=== PATIENT | male | born 1945 | race Caucasian/White ===

== ENCOUNTER → 2016-04-11 | Outpatient (CLI) | payer MEDICARE, OTHER ==
[~2016-04-11] MED LIST: ASPI-119 PO; ATOR40TA16 PO; AZIT250T3 PO; CINN500C PO; DICL75TA PO; FENO145T2 PO; FLAX10006 PO; IRBE300T11 PO; KRIL1000 PO; LANTINJ SQ; LATA0.002 EACH EYE; METF500T PO; NEOM0.1S4 RIGHT EYE; NEOMOIN RIGHT EYE; RAPA8CAP PO; TAMS0.4C4 PO; TURM450C PO; TYLETAB34 PO; VICT18IN SQ; [UNRECOGNIZED DRUG - CODE] PO
--- NOTE | 2016-04-11 11:31 | RADRPT ---
EXAM DATE/TIME: 04/11/2016 11:10 [place] COMPARISON: No previous studies available for comparison. INDICATIONS : Evaluate for pneumonia, pneumothorax, or communicable disease. Pre op for knee arthroscopy. MEDICAL HISTORY : None. SURGICAL HISTORY : None. ENCOUNTER: Initial ACUITY: 1 day PAIN SCORE: 0/10 LOCATION: Bilateral chest FINDINGS: PA and lateral views of the chest demonstrate the lungs to be symmetrically aerated without evidence of mass, infiltrate or effusion. The cardiomediastinal contours are unremarkable. Osseous structure s are intact. CONCLUSION: Normal examination. Omar Lockhart MD on April 11, 2016 at 11:29 Board Certified Radiologist. This report was verified electronically.
[2016-04-11 11:37] LABS: BLOOD, URINE NEG (NEG); GLUCOSE,URINE NEG (NEG); KETONE, URINE NEG (NEG); NITRITE,URINE NEG (NEG); PH, URINE 6.5 (5.0-8.5); URINE COLOR LIGHT-YELLOW (YELLW/STRAW)
[2016-04-11 11:38] LABS: COMMENT (UR) CULT NOT INDICATED; CULTURE IF INDICATED CULT NOT INDICATED
[2016-04-11 11:49] LABS: PROTHROMBIN TIME - PATIENT 10.7 SEC (9.8-11.6)
[2016-04-11 11:56] LABS: BICARBONATE 27.3 MEQ/L (21.0-32.0); POTASSIUM 4.3 MEQ/L (3.5-5.1)
== END ==
LOC: CPRE 10:04
PROVIDERS: ATTEND Orthopaedic Surgery
DX: Z01.810 Encounter for preprocedural cardiovascular examination (principal); Z01.811 Encounter for preprocedural respiratory examination; Z01.812 Encounter for preprocedural laboratory examination; S83.232D Complex tear of medial meniscus, current injury, left knee, subsequent encounter; X58.XXXD Exposure to other specified factors, subsequent encounter
CPT/HCPCS: 36415; 71020; 80048; 81001; 85610

== ENCOUNTER → 2016-04-21 | Day surgery (SDC) | payer MEDICARE, OTHER ==
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
[~2016-04-21] VITALS: Ht 170.2 cm; Wt 91.1 kg
[~2016-04-21] MED LIST changes: +ACETAMINOPHEN/HYDROcodone 325 MG/5 MG TAB PO PRN; +DEXAMETHASONE SOD PHOS 4 MG/ML VIAL ONE; +DO NOT ADM ANY ANTICOAGULANT DRUGS XX PRN; +FAMOTIDINE 20 MG/2 ML VIAL ONE; +INSULIN HUMAN REGULAR 1,000 UNITS/10 ML VIAL SQ PRN; +KETOROLAC TROMETHAMINE 60 MG/2 ML (IM) VIAL IM ONE; +LACTATED RINGER'S 1000 ML INJ 1,000 ML IV ONE; +LACTATED RINGER'S 1000 ML IV SCH; +LIDOCAINE HCL 2% PF SOLN 10 ML VIAL ONE; +METOCLOPRAMIDE HCL 10 MG/2 ML VIAL ONE; +METOPROLOL TARTRATE 25 MG TAB PO PRN; +MIDAZOLAM HCL 2 MG/2 ML VIAL ONE; +MORPHINE SULFATE 8 MG/ML INJ IM PRN; +ONDANSETRON HCL 4 MG/2 ML VIAL IV PUSH ONE; +PHENYLEPH/NS 1000 MCG/10 ML SYR IV ONE; +POVIDONE IODINE 7.5% SCRUB 118 ML BOTTLE TOP SCH; +PROPOFOL 200 MG/20 ML AMP IV ONE; +SODIUM CHLORID 0.9% 500 ML IV SCH; +TRIAMCINOLONE ACETONIDE 40 MG/ML VIAL I-SYNOVIAL ONE; +ceFAZolin 2 GM PREMIX 50 ML IV SCH; +ePHEDrine/NS 25 MG/5 ML SYR IV ONE; +fentaNYL CITRATE 250 MCG/5 ML AMP ONE
[2016-04-21 06:13] VITALS: BP 122/73; PULSE 78; RESP 18; TEMP 97.6; O2SAT 96
[2016-04-21 09:50] VITALS: BP 123/73; PULSE 69; RESP 20; TEMP 97.6; O2SAT 95
--- NOTE | 2016-04-25 17:02 | MP ---
cc: SLY SAUL DATE OF SURGERY [birth year] PREOPERATIVE DIAGNOSIS 1. Complex tear medial meniscus left knee 2. Lateral meniscus tear left knee 3. Chondromalacia left knee 4. Effusion left knee, 5. Arredondo's cyst left knee 6. Pain left knee POSTOPERATIVE DIAGNOSIS 1. Complex tear medial meniscus left knee 2. Lateral meniscus tear left knee 3. Chondromalacia left knee 4. Effusion left knee, 5. Arredondo's cyst left knee 6. Pain left knee 7. Chondromalacia patellae left knee, 8. Synovial plica left knee PROCEDURE 1. Partial medial meniscectomy left knee 2. Chondroplasty of medial compartment 3. Chondroplasty of patellofemoral joint 4. Resection of synovial plica left knee SURGEON Jess Saul MD ANESTHESIA General by LMA PROCEDURE IN DETAIL Following the induction of satisfactory general anesthesia by LMA insertion as completed per the Department of Anesthesia, examination of the left knee revealed a satisfactory range of motion with no obvious ligamentous instability. The extremity proper was positioned into the assistant professor of communication knee casas, prepped with Betadine solution and draped into a sterile field in the routine manner. Prior to initiation of the actual procedure, the standard time-out protocol was completed. All parameters were appropriately addressed and confirmed by operating room personnel. Arthroscopic instrumentation was introduced through stab wound utilizing cannula with sharp and blunt trocar. The inflow irrigation by way of a medial suprapatellar portal, the arthroscope through a lateral parapatellar portal and a probe through a medial parapatellar portal. Examination of the suprapatellar pouch revealed a mild degree of proliferative synovium, a prominent synovial plica was identified within the medial aspect of the suprapatellar region. Moderate degenerative irregularity of the patellofemoral joint consistent with localized chondromalacia. Within the medial compartment, a degenerative tear involving the posterior horn of the medial meniscus was readily identified. There was adjacent articular irregularity especially involving the femoral condyle that was consistent with localized chondromalacia. The anterior cruciate ligament was identified and noted to be intact. Within the lateral compartment, there was no significant irregularity appreciated in spite of an MRI scan having reported a small radial tear of the lateral meniscus. The meniscus structure itself appeared to be reasonably intact throughout as was the adjacent articular surfaces of the femoral condyle and tibial plateau. Attention was redirected to the medial compartment. Utilizing both a biting suction forceps as well as a 4.0 aggressive resector, a partial medial meniscectomy was accomplished as well as localized debridement and chondroplasty of the femoral condyle and tibial plateau. The resector was thereafter oriented into the suprapatellar region. The previously identified synovial plica was resected followed by a chondroplasty of the patellofemoral joint with emphasis being directed more towards the femoral side. Upon completion of same, the joint space was thoroughly lavaged and suctioned dry. An intra-articular Kenalog lidocaine injection was completed. Portal sites were reapproximated with Steri-Strips over which Xeroform gauze and a bulky dry sterile dressing placed. Anesthesia was discontinued and the patient thus transferred to a hospital stretcher and returned to the recovery room in satisfactory condition having tolerated the operative procedure well. Estimated blood loss was less than 10 mL. MD BARBARA Becker/ /8:26 AM /3:41 PM
== END | disposition home or self-care (01) ==
LOC: HSDC 05:19 → EDUNIT# 07:30
PROVIDERS: ATTEND Orthopaedic Surgery
DX: S83.232A Complex tear of medial meniscus, current injury, left knee, initial encounter (principal); S83.282A Other tear of lateral meniscus, current injury, left knee, initial encounter; M94.262 Chondromalacia, left knee; M71.22 Synovial cyst of popliteal space [Baker], left knee; M67.52 Plica syndrome, left knee; E11.9 Type 2 diabetes mellitus without complications; Z79.4 Long term (current) use of insulin; Z85.51 Personal history of malignant neoplasm of bladder
CPT/HCPCS: 01400; 29881; 82948; J0690; J1100; J1885; J2250; J2370; J2405; J2765; J3010; J3301; J7120

== ENCOUNTER → 2016-11-22 | Day surgery (SDC) | payer MEDICARE, OTHER ==
[~2016-11-22] MED LIST changes: -ACETAMINOPHEN/HYDROcodone 325 MG/5 MG TAB PO PRN; -AZIT250T3 PO; +BUPIVACAINE/EPINEPHRINE 0.5% 50 ML VIAL ONE; -DEXAMETHASONE SOD PHOS 4 MG/ML VIAL ONE; -DO NOT ADM ANY ANTICOAGULANT DRUGS XX PRN; -FAMOTIDINE 20 MG/2 ML VIAL ONE; +HEPARIN SODIUM - IV 10,000 UNITS/10 ML VIAL ONE; -INSULIN HUMAN REGULAR 1,000 UNITS/10 ML VIAL SQ PRN; -KETOROLAC TROMETHAMINE 60 MG/2 ML (IM) VIAL IM ONE; -LACTATED RINGER'S 1000 ML INJ 1,000 ML IV ONE; -LACTATED RINGER'S 1000 ML IV SCH; +LIDOCAINE HCL 1% PF 5 ML AMPULE OTHER ONE; -LIDOCAINE HCL 2% PF SOLN 10 ML VIAL ONE; -METOCLOPRAMIDE HCL 10 MG/2 ML VIAL ONE; -METOPROLOL TARTRATE 25 MG TAB PO PRN; -MORPHINE SULFATE 8 MG/ML INJ IM PRN; -NEOM0.1S4 RIGHT EYE; -NEOMOIN RIGHT EYE; -ONDANSETRON HCL 4 MG/2 ML VIAL IV PUSH ONE; -PHENYLEPH/NS 1000 MCG/10 ML SYR IV ONE; -POVIDONE IODINE 7.5% SCRUB 118 ML BOTTLE TOP SCH; -RAPA8CAP PO; -SODIUM CHLORID 0.9% 500 ML IV SCH; +SODIUM CHLORIDE 0.9% 20 ML VIAL ONE; -TRIAMCINOLONE ACETONIDE 40 MG/ML VIAL I-SYNOVIAL ONE; -ceFAZolin 2 GM PREMIX 50 ML IV SCH; +ceFAZolin 2 GM PREMIX 50 ML ONE; -ePHEDrine/NS 25 MG/5 ML SYR IV ONE; -fentaNYL CITRATE 250 MCG/5 ML AMP ONE
--- NOTE | 2016-11-22 12:41 | TN ---
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 Left subclavian vein [id number]-[id number]-[id number] placement. 2. Intraoperative interpretation of fluoroscopic images by ATTENDING SURGEON Jake Luna MD COMPRESSED GASES TESTER Staff ANESTHESIA TIVA and local anesthetic FINDINGS Catheter in the left subclavian vein with tip in atriocaval junction without kinking on fluoroscopy aspirating and flushed with heparinized saline. COMPLICATIONS None BLOOD LOSS Less than 10 cc INDICATIONS FOR PROCEDURE The patient is a 71-year-old male recently diagnosis the GE junction adenocarcinoma. The patient is a candidate for neoadjuvant chemotherapy and radiation and the patient required an [id number] placement. The risks, benefits, and alternatives discussed with the patient and his family prior to the and they agreed to undergo the procedure. PROCEDURE The patient was taken to the operating room, placed under TIVA anesthetic. His chest was shaved, prepped and draped in a sterile fashion. Time-out was performed. Local anesthetic was instilled in the planned port site. We accessed left subclavian vein on the first attempt with an 18 gauge finder needle in the kit. We passed the wire without difficulty and the tip went into the superior vena cava. This percutaneous stick site was extended into a 2 cm horizontal incision with a 15 blade scalpel. Then we used the Bovie electrocautery to make a subcutaneous pocket in this area. We used a breakaway dilator introducer to access over the wire with sterile Seldinger technique and placed the catheter through the introducer. The tip was confirmed to be the atriocaval junction in good position and in the venous system and this was custom cut and assembled according to manufacturers recommendations. This was placed back into the pocket without difficulty. We aspirated this blood easily and flushed it with heparinized saline. We then turned our attention towards closure and closed the skin with Vicryl deep dermal sutures followed by 4-0 Monocryl and Dermabond. Fluoroscopy was again used to confirm this was in good position without kinking with the tip in the atriocaval junction. No signs of complications. All counts were correct times five. I was scrubbed and performed the entire procedure. The patient the tolerated procedure well. MD OUSMANE Tse/JULIAN /12:23 PM /12:29 PM
== END | disposition home or self-care (01) ==
LOC: ESDC 10:02
PROVIDERS: ATTEND Surgery
DX: Z45.2 Encounter for adjustment and management of vascular access device (principal); C16.0 Malignant neoplasm of cardia; E11.9 Type 2 diabetes mellitus without complications; Z79.4 Long term (current) use of insulin
CPT/HCPCS: 00532; 36561; 77001; 82948; C1788; J0690; J1644; J2250; J3010

== ENCOUNTER 2017-03-21 05:38 | Inpatient (IN) | payer MEDICARE, OTHER ==
[~2017-03-21] VITALS: Ht 170.2 cm; Wt 82.0 kg
[~2017-03-21 05:38] MED LIST changes: -ASPI-119 PO; -BUPIVACAINE/EPINEPHRINE 0.5% 50 ML VIAL ONE; -CINN500C PO; -DICL75TA PO; -FLAX10006 PO; -HEPARIN SODIUM - IV 10,000 UNITS/10 ML VIAL ONE; +IBUP1TAB7 PO; -IRBE300T11 PO; -KRIL1000 PO; -LANTINJ SQ; -LIDOCAINE HCL 1% PF 5 ML AMPULE OTHER ONE; -MIDAZOLAM HCL 2 MG/2 ML VIAL ONE; -PROPOFOL 200 MG/20 ML AMP IV ONE; -SODIUM CHLORIDE 0.9% 20 ML VIAL ONE; +THER50TA3 PO; -TURM450C PO; -TYLETAB34 PO; -VICT18IN SQ; -[UNRECOGNIZED DRUG - CODE] PO; -ceFAZolin 2 GM PREMIX 50 ML ONE
[2017-03-21] MEDS ORDERED: CHLORHEXIDINE GLUCONATE 2 % 1 PACK (2 CLOTHS) TOPICAL PRN (06:30)
[2017-03-21] MEDS ORDERED: LACTATED RINGER'S 1000 ML IV PRN (06:30)
[2017-03-21] MEDS ORDERED: METOPROLOL TARTRATE 25 MG TAB PO PRN (06:30)
[2017-03-21] MEDS ORDERED: POVIDONE IODINE 5% (ANTISEPSIS KIT) 4 APPLICATIONS EACH NARE PRN (06:30)
[2017-03-21] MEDS ORDERED: SODIUM CHLORID 0.9% 500 ML IV PRN (06:30)
[2017-03-21] MEDS ORDERED: ceFAZolin 2 GM PREMIX 50 ML IV SCH (06:30)
[2017-03-21] MEDS ORDERED: PROPOFOL 200 MG/20 ML AMP ONE (07:00)
[2017-03-21] MEDS ORDERED: SODIUM CHLORIDE 0.9% 20 ML VIAL ONE (07:00)
[2017-03-21] MEDS ORDERED: BUPIVACAINE LIPOSOME PF 1.3% 20 ML VIAL ONE (07:00)
[2017-03-21 07:21] LABS: AUTOMATED NEUTROPHIL # 2.3 TH/MM3 (1.8-7.7); BASOPHIL % 0.3 % (0.0-2.0); EOSINOPHIL # 0.1 TH/MM3 (0-0.4); EOSINOPHIL % 2.4 % (0.0-4.0); HEMATOCRIT 39.8 % (39.0-51.0); HEMOGLOBIN 13.4 GM/DL (13.0-17.0); LYMPH % 26.7 % (9.0-44.0); MEAN CELL VOLUME 90.5 FL (80.0-100.0); MEAN CORPUSCULAR HEMOGLOBIN 30.6 PG (27.0-34.0); MEAN CORPUSCULAR HGB CONC 33.8 % (32.0-36.0); MONO % 8.9 % (0.0-8.0); MONOCYTE # 0.3 TH/MM3 (0-0.9); NEUT % 61.7 % (16.0-70.0); PLATELET COUNT 222 TH/MM3 (150-450); RED BLOOD COUNT 4.39 MIL/MM3 (4.50-5.90); RED CELL DISTRIBUTION WIDTH 15.8 % (11.6-17.2); WHITE BLOOD COUNT 3.8 TH/MM3 (4.0-11.0)
[2017-03-21] MEDS ORDERED: BUPIVACAINE/EPINEPHRINE 0.5% PF 30 ML VIAL ONE (07:21)
[2017-03-21] MEDS ORDERED: SODIUM CHLORIDE 0.9% INJ 0 ML ONE (07:22)
[2017-03-21] MEDS ORDERED: ACETAMINOPHEN 1000 MG/100 ML 100 ML IV ONE (07:24)
[2017-03-21 07:45] LABS: CALCIUM 9.1 MG/DL (8.5-10.1); CREATININE 1.01 MG/DL (0.60-1.30)
[2017-03-21] MEDS ORDERED: ONABOTULINUMTOXINA INJ 100 UNITS/VIAL ONE (07:45)
--- NOTE | 2017-03-21 10:54 | EKG ---
Date Performed: 03/21/2017 Time Performed: 07:03:49 PTAGE: 71 years EKG: Sinus rhythm POSSIBLE RIGHT VENTRICULAR CONDUCTION DELAY INFERIOR MYOCARDIAL INFARCTION , PROBABLY OLD WITH POSTE RIOR EXTENSION ABNORMAL ECG NO PREVIOUS TRACING DOCTOR: Omar Horn Interpretating Date/Time 03/21/2017 10:52:03
[2017-03-21] MEDS ORDERED: PROPOFOL 200 MG/20 ML AMP IV ONE (12:00)
[2017-03-21] MEDS ORDERED: ceFAZolin INJ 1,000 MG VIAL ONE (12:00)
[2017-03-21] MEDS ORDERED: ONDANSETRON HCL 4 MG/2 ML VIAL IV ONE (12:00)
[2017-03-21] MEDS ORDERED: ePHEDrine/NS 25 MG/5 ML SYRINGE IV ONE (12:00)
[2017-03-21] MEDS ORDERED: NORMOSOL R INJ 1,000 ML IV ONE (12:00)
[2017-03-21] MEDS ORDERED: LACTATED RINGER'S 1000 ML INJ 4,000 ML IV ONE (12:00)
[2017-03-21] MEDS ORDERED: PHENYLEPHRINE HCL 10 MG/ML VIAL IV ONE (12:00)
[2017-03-21] MEDS ORDERED: LIDOCAINE HCL 1% PF 5 ML SYRINGE OTHER ONE (12:00)
[2017-03-21] MEDS ORDERED: SODIUM CHLORIDE 0.9% 20 ML VIAL IV ONE (12:00)
[2017-03-21] MEDS ORDERED: PHENYLEPH/NS 1000 MCG/10 ML SYR IV ONE (12:00)
[2017-03-21] MEDS ORDERED: ROCURONIUM INJ 50 MG/5 ML SYRINGE IV PUSH ONE (12:00)
[2017-03-21] MEDS ORDERED: DEXAMETHASONE SOD PHOS 4 MG/ML VIAL IV ONE (12:00)
[2017-03-21] MEDS ORDERED: *morphine SULFATE 4 MG/ML PERIprocedure ONLY ONE (13:38)
[2017-03-21] MEDS ORDERED: HYDROmorphone HCL PF 2 MG/ML VIAL ONE ×2 (13:43→14:09)
[2017-03-21] MEDS ORDERED: ceFAZolin 2 GM PREMIX 50 ML IV ONE (13:44)
[2017-03-21] MEDS ORDERED: NALOXONE HCL 0.4 MG/ML AMP IV PUSH PRN ×2 (13:45→14:15)
[2017-03-21] MEDS: SODIUM CHLOR 0.9% 1000 ML INJ 1,000 ML IV SCH ×2 (13:54→22:52)
[2017-03-21] MEDS: MORPHINE SULFATE 30 MG/30 ML PCA IV SCH (13:54)
[2017-03-21] MEDS ORDERED: ONDANSETRON HCL 4 MG/2 ML VIAL IV PUSH PRN (14:15)
[2017-03-21] MEDS: SODIUM CHLORIDE 0.9% FLUSH 10 ML FLUSH IV FLUSH SCH ×2 (14:15→20:17)
[2017-03-21] MEDS ORDERED: diphenhydrAMINE HCL 50 MG/ML VIAL IV PUSH PRN (14:15)
[2017-03-21] MEDS ORDERED: SODIUM CHLORIDE 0.9% FLUSH 10 ML FLUSH IV FLUSH PRN (14:15)
[2017-03-21] MEDS: ACETAMINOPHEN 1000 MG/100 ML 100 ML IV SCH ×2 (14:15→20:17)
[2017-03-21] MEDS ORDERED: HYDROmorphone HCL PF 2 MG/ML VIAL IV PUSH PRN (14:15)
[2017-03-21] MEDS ORDERED: BENZOCAINE 20% ORAL SPR 60 ML CAN MT PRN (14:15)
--- NOTE | 2017-03-21 14:22 | PD.CONS ---
[facility] Service Critical Care Medicine Consult Requested By Dr. 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 History of Present Illness Mr. 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 He was admitted to Dr. Painting and underwent open total gastrectomy and [place] esophagectomy. Pateint had pre-op chemotherapy by Dr. Luther. Initial plan was for proximal gastrectomy and esophagectomy but apparently disease was more advanced locally than expected. EBL was 200 mL. Postop patient was extubated. I evaluated the patient in the ICU. Patient in moderate distress due to pain. 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 I have ordered Dilaudid 2 mg every 3 hours IV as needed for breakthrough pain. He states the pain is in the incision site. There is no peritoneal signs. 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 with extension to the gastric cardia History of bladder Carcinoma Diabetes Type II History of diverticulitis BPH Kidney stones Past Surgical History Cholecystectomy Tonsillectomy Transurethral resection of bladder tumor EGD Multiple cystoscopies Reported Medications Tamsulosin 0.4 mg daily Fenofibrate 145 mg daily Lipitor 40 mg daily Motrin as needed Latanoprost eyedrops Metformin 500 twice daily Multivitamin Active Ordered Medications Reviewed Family History No history of malignancies in family Social History Non-smoker, occasional alcohol use Physical Exam Vital Signs Vital Signs Date Time Temp Pulse Resp B/P (MAP) Pulse Ox O2 Delivery O2 Flow Rate FiO2 03/21/17 07:56 66 16 124/76 (92) 97 03/21/17 07:13 97.7 76 20 143/88 (106) 96 Physical Exam GEN: Alert, cooperative, oriented. In moderate to severe distress from postop pain Head: Normocephalic; atraumatic Eyes: Pupils are reactive and equal. ENT: Oral cavity moist airway patent Neck: Supple. No jugular venous distension. Respiratory: Lungs are clear to auscultation without rhonchi or wheezing. Cardiovascular: Regular rate and rhythm of heart without murmurs, gallops or rubs. Abdomen: Midline incision dressing intact with single NARINDER drain and J-tube in place. Severe tenderness surrounding the incision site. No peritoneal signs to Extremities: No visible deformities, no cyanosis, clubbing or edema. Pulses 4+ and equal bilaterally. Musculoskeletal: No tenderness or swelling. Neurologic: AOx3. No sensory or motor deficits, cranial nerves grossly intact. Laboratory Laboratory Tests Test 03/21/17 07:01 White Blood Count 3.8 Red Blood Count 4.39 Hemoglobin 13.4 Hematocrit 39.8 Mean Corpuscular Volume 90.5 Mean Corpuscular Hemoglobin 30.6 Mean Corpuscular Hemoglobin Concent 33.8 Red Cell Distribution Width 15.8 Platelet Count 222 Mean Platelet Volume 8.0 Neutrophils (%) (Auto) 61.7 Lymphocytes (%) (Auto) 26.7 Monocytes (%) (Auto) 8.9 Eosinophils (%) (Auto) 2.4 Basophils (%) (Auto) 0.3 Neutrophils # (Auto) 2.3 Lymphocytes # (Auto) 1.0 Monocytes # (Auto) 0.3 Eosinophils # (Auto) 0.1 Basophils # (Auto) 0.0 CBC Comment DIFF FINAL Differential Comment Blood Urea Nitrogen 15 Creatinine 1.01 Random Glucose 111 Calcium Level 9.1 Sodium Level 143 Potassium Level 3.9 Chloride Level 110 Carbon Dioxide Level 27.0 Anion Gap 6 Estimat Glomerular Filtration Rate 73 Result Diagram: 03/21/17 0701 03/21/17 07 Imaging Previous imaging studies reviewed Assessment and Plan Assessment and Plan NEURO: Postoperative pain control - 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 Post op management per Dr. Hamm - IV Protonix 40 mg q24 hours : History of bladder cancer - Monitor renal function closely. ID: - Continue cefazolin and Flagyl per Dr. Hamm - Monitor for infection HEME/ONC: Adenocarcinoma distal esophagus extending into the gastric cardia (no metastasis ) - Monitor CBC, CMP - Medical oncologist Dr Luther - Received preoperative chemo ENDO: Hyperglycemia/diabetes type 2 Hypokalemia - Sliding-scale insulin - Electrolyte replacement per protocol PROPH: - Bilateral lower extremity SCDs. Lovenox 40 mg sq daily LINES: - Utilize peripheral IVs, central line if needed CC time 35 min Code Status Full Discussed Condition With Discussed with Dr. Hamm and patient's oncologist Jacob Dick MD Mar 21, 2017 14:22
[2017-03-21] MEDS: metroNIDAZOLE 500 MG INJ 100 ML IV SCH ×2 (14:23→23:23)
[2017-03-21] MEDS ORDERED: POTASSIUM CHLORIDE 25 MEQ EFFERVESCENT TAB PO PRN (14:30)
[2017-03-21] MEDS ORDERED: POTASSIUM CHLOR 20 MEQ PREMIX 100 ML IV PRN (14:30)
[2017-03-21] MEDS ORDERED: POTASSIUM PHOSPHATE INJ 30 MMOL in SODIUM CHLOR 0.9% 250 ML INJ 250 ML IV PRN (14:30)
[2017-03-21] MEDS ORDERED: POTASSIUM PHOSPHATE MONOBASIC 500 MG TAB PO PRN (14:30)
[2017-03-21] MEDS ORDERED: SODIUM PHOSPHATE INJ 30 MMOL in SODIUM CHLOR 0.9% 250 ML INJ 240 ML IV PRN (14:30)
[2017-03-21] MEDS ORDERED: MAGNESIUM OXIDE 400 MG TAB PO PRN (14:30)
[2017-03-21] MEDS ORDERED: MAGNESIUM SULFATE INJ 4 GM in SODIUM CHLORIDE 0.9% INJ 92 ML IV PRN (14:30)
[2017-03-21] MEDS ORDERED: DO NOT ADM ANY ANTICOAGULANT DRUGS PRN (14:30)
[2017-03-21] MEDS ORDERED: MAGNESIUM SULFATE INJ 2 GM in SODIUM CHLORIDE 0.9% INJ 96 ML IV PRN (14:30)
[2017-03-21] MEDS ORDERED: POTASSIUM PHOSPHATE MONOBASIC 500 MG TAB PO/TUBE PRN (14:30)
[2017-03-21] MEDS ORDERED: POTASSIUM CHLOR 40 MEQ PREMIX 100 ML IV PRN ×2 (14:30)
[2017-03-21 14:52] LABS: HEMATOCRIT 40.4 % (39.0-51.0); HEMOGLOBIN 13.5 GM/DL (13.0-17.0); MEAN CELL VOLUME 90.7 FL (80.0-100.0); MEAN CORPUSCULAR HEMOGLOBIN 30.4 PG (27.0-34.0); MEAN CORPUSCULAR HGB CONC 33.5 % (32.0-36.0); MEAN PLATELET VOLUME 7.7 FL (7.0-11.0); PLATELET COUNT 228 TH/MM3 (150-450); RED BLOOD COUNT 4.46 MIL/MM3 (4.50-5.90)
[2017-03-21] MEDS ORDERED: Post-op Orders (for Pharmacy) XX ONE (15:00)
[2017-03-21] MEDS: INSULIN ASPART SUPPLEMENTAL SCALE SQ SCH ×3 (15:00→23:23)
[2017-03-21 15:16] LABS: ALKALINE PHOSPHATASE 58 U/L (45-117); ALT (GPT) 142 U/L (12-78); AST (GOT) 171 U/L (15-37); BICARBONATE 22.4 MEQ/L (21.0-32.0); BLOOD UREA NITROGEN 14 MG/DL (7-18); CALCIUM 8.1 MG/DL (8.5-10.1); CHLORIDE 109 MEQ/L (98-107); GLOMERULAR FILTRATION RATE 83 ML/MIN (>89); GLUCOSE,RANDOM 184 MG/DL (74-106); MAGNESIUM 1.5 MG/DL (1.5-2.5); PHOSPHORUS 3.6 MG/DL (2.5-4.9); SODIUM (NA) 141 MEQ/L (136-145); TOTAL BILIRUBIN ADULT 0.3 MG/DL (0.2-1.0); TOTAL PROTEIN 5.7 GM/DL (6.4-8.2)
[2017-03-21 15:43] VITALS: RESP 9
[2017-03-21] MEDS: PCA - TOTAL MG MORPHINE DELIVERED PER SHIFT SCH ×2 (15:44→22:00)
[2017-03-21 15:45] VITALS: BP 147/73; PULSE 89; RESP 9; TEMP 97.1; O2SAT 97
[2017-03-21] MEDS ORDERED: ACETAMINOPHEN 1000 MG/100 ML 100 ML IV PRN (15:45)
[2017-03-21 16:00] VITALS: BP 145/71; PULSE 88; PULSE 91; RESP 10; O2SAT 98
[2017-03-21] MEDS ORDERED: RESP: ALBUTEROL 2.5 MG/IPRATROPIUM 0.5 MG NEB (PRN) NEB (16:00)
[2017-03-21] MEDS ORDERED: SODIUM CHLORID 0.9% 500 ML INJ 500 ML IV ONE (16:45)
[2017-03-21] MEDS: PANTOPRAZOLE SODIUM 40 MG VIAL IV PUSH SCH (17:00)
[2017-03-21 18:00] VITALS: PULSE 91
[2017-03-21 20:00] VITALS: BP 135/79; PULSE 82; RESP 11; TEMP 97.5; O2SAT 98
[2017-03-21] MEDS: LATANOPROST 0.005% OPHT SOLN 2.5 ML BTL EACH EYE SCH (20:17)
[2017-03-21 22:00] VITALS: PULSE 84; RESP 11
[2017-03-22] VITALS (16 sets, daily range): BP systolic 104–143; BP diastolic 57–78; PULSE 74–87; RESP 9–15; TEMP 98–98.7; O2SAT 96–99
[2017-03-22] MEDS: POTASSIUM CHLOR 20 MEQ PREMIX 100 ML IV PRN ×2 (00:30→06:54)
[2017-03-22] MEDS: ACETAMINOPHEN 1000 MG/100 ML 100 ML IV SCH ×2 (02:07→09:54)
[2017-03-22] MEDS: INSULIN ASPART SUPPLEMENTAL SCALE SQ SCH ×6 (03:42→23:08)
[2017-03-22] MEDS: MORPHINE SULFATE 30 MG/30 ML PCA IV SCH ×2 (04:16→13:30)
[2017-03-22] MEDS: PCA - TOTAL MG MORPHINE DELIVERED PER SHIFT SCH ×3 (05:06→22:47)
[2017-03-22] MEDS: SODIUM CHLORIDE 0.9% FLUSH 10 ML FLUSH IV FLUSH SCH ×2 (09:00→20:08)
[2017-03-22] MEDS: metroNIDAZOLE 500 MG INJ 100 ML IV SCH (09:00)
[2017-03-22 09:55] LABS: AUTOMATED NEUTROPHIL # 8.4 TH/MM3 (1.8-7.7); BASOPHIL % 0.3 % (0.0-2.0); EOSINOPHIL % 0.1 % (0.0-4.0); HEMATOCRIT 38.6 % (39.0-51.0); HEMOGLOBIN 12.7 GM/DL (13.0-17.0); LYMPH % 5.1 % (9.0-44.0); LYMPHOCYTE # 0.5 TH/MM3 (1.0-4.8); MEAN CELL VOLUME 91.4 FL (80.0-100.0); MEAN CORPUSCULAR HEMOGLOBIN 30.1 PG (27.0-34.0); MEAN PLATELET VOLUME 8.3 FL (7.0-11.0); MONO % 5.4 % (0.0-8.0); MONOCYTE # 0.5 TH/MM3 (0-0.9); NEUT % 89.1 % (16.0-70.0); PLATELET COUNT 200 TH/MM3 (150-450); RED BLOOD COUNT 4.22 MIL/MM3 (4.50-5.90); RED CELL DISTRIBUTION WIDTH 15.6 % (11.6-17.2); WHITE BLOOD COUNT 9.4 TH/MM3 (4.0-11.0)
[2017-03-22] MEDS: SODIUM CHLOR 0.9% 1000 ML INJ 1,000 ML IV SCH ×2 (10:15→20:06)
[2017-03-22 10:28] LABS: BICARBONATE 24.2 MEQ/L (21.0-32.0); CALCIUM 8.5 MG/DL (8.5-10.1); CREATININE 0.95 MG/DL (0.60-1.30)
--- NOTE | 2017-03-22 10:32 | MP ---
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 PROCEDURE 1. Open total gastrectomy with esophagoenterostomy and Samuel-en-Y reconstruction. 2. Liver wedge biopsy, intraoperative frozen section. 3. Jejunostomy tube placement. ANESTHESIA General and regional tap block. ATTENDING SURGEON MD Noris [employer] Waqar Menchaca MD BLOOD LOSS 150 cc. COMPLICATIONS None. FINDINGS 1. Intraoperative frozen section of liver lesion is consistent with benign liver tumor. No evidence of metastatic disease. 2. Intraoperative frozen section of proximal esophageal margin initially positive requiring further resection of distal esophagus. 3. No evidence of carcinomatosis or metastatic disease. 4. Extensive gastric tumor extending grossly into the lesser curve necessitating total gastrectomy for technical and oncologic treatment of the patient's tumor. INDICATION FOR PROCEDURE The patient is a 71-year-old male who was recently diagnosed with a GE junction and proximal gastric tumor. The patient underwent staging and this was felt to be a GE junction tumor and was treated with perioperative chemotherapy by Medical Oncology. The patient has a good response to chemotherapy and planned proximal gastrectomy, possible lateral esophagectomy was performed as the patient's tumor was thought to be up at the GE junction nearly into the esophagus on preoperative staging. The risks, benefits and alternatives to proximal gastrectomy, possible lateral esophagectomy were discussed with the patient prior to the procedure and he agreed to undergo the procedure. PROCEDURE After informed consent was obtained, the patient was taken to the operating room, placed in supine position, placed under general endotracheal anesthesia. Of note, the patient underwent preoperative regional TAP block. At this point in time the patient's abdomen was shaved, prepped and draped in sterile fashion. Time-out was performed. The patient's abdomen was entered through an upper midline incision from below the xiphoid to above the umbilicus with a 10 blade scalpel. Bovie electrocautery was used to dissect the subcutaneous tissue and opened the fascia for the full length of the incision. An Jay extra-large wound protector was placed. Bookwalter retractor was replaced to give better exposure. We surveyed the abdomen. There was no evidence of any carcinomatosis. The tumor was palpated at the GE junction. There was no evidence of any metastatic disease. We did find one area of the liver which was a lesion in the left lobe of the liver which was of uncertain significance and could be consistent with a solitary small metastasis. We therefore did a liver wedge biopsy with a 15 blade scalpel and passed this off for frozen section. We had excellent hemostasis with the Bovie electrocautery. 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 At this point in time, we proceeded with the operation as planned. We did open the lesser sac with the Enseal device. We took the omentum off of the transverse colon and this was actually again removed as part of the specimen, however, this was passed off separately due to technical considerations as the patient had an extremely large fatty omentum and removing this separately would facilitate a timely operation as to remove it from the operative field. When we had done this, we took down the short gastrics with the Enseal taking directly right off the splenic capsule to ensure all the lymph node tissue was removed from the fundus. We continued with the Enseal down and took down the pepe on the right and left-side, immobilized the esophagus. We dissected out the left gastric vein and artery at its origin and divided this with the white load on the [employer] [place] stapler. Once we had completed this, we mobilized the esophagus out from the chest proximally. 5 cm of esophagus was intraabdominal. This appeared to be a good two or three fingerbreadths above the tumor which was more in the cardia. We divided this with a green load of the [place] stapler. This appeared to be a normal distal esophagus. We then used the combination of green loads and black loads to divide the stomach at the fundus and across the incisura performing partial gastrectomy. At this point in time we did unfortunately encounter an extremely thick and hard, indurated area on the lesser curvature that seemed to be continuous with the tumor and grossly was consistent with tumor extension. We at this point in time had sent this for intraoperative consultation with pathology. We were concerned about the technical result of the surgery as the patient actually had dehiscence of the staple line at this area due to again what seemed to be tumor and this was not amendable to a good technical closure at this time. At this point time, due to the concern for more extensive disease than was originally evaluated on staging and due to technical considerations, felt it was in the patient's best interest to perform a total gastrectomy. We continued to dissect down towards the pylorus. We used the Enseal device for most of this dissection. We divided the right gastroepiploic artery over a hemostat with 2-0 silk tie. We divided the first portion of the duodenum just distal to the pylorus with a blue load on the [place] stapler. This was marked and sent off for permanent processing in pathology. Unfortunately, at this point in time, we did have some positive microscopic margin at the esophagus and we did resect another approximately 2 cm of the esophagus and sent this down for frozen section which did return negative at that time. At this time we had performed total gastrectomy and all negative margins as far as intraoperative evaluation and turned towards reconstruction. We were able to perform an esophagoenterostomy using a Samuel-en-Y reconstruction. We divided the proximal jejunum approximately 30 cm past the ligament of Treitz and brought up the distal limb as a Samuel limb, anticolic. We performed a 25 EEA stapler anastomosis using the OrVil anvil passed down through the esophageal stump and the EEA stapler through the distal end of the Samuel limb. The staple line was intact, healthy and viable with two good donuts. We passed an NG tube down into the blind loop as the patient's reconstructed stomach or pouch. We closed this end of the blind loop with a blue load on the [place] stapler. At this point in time we bridled the NG tube in place with the assistance of Anesthesia. I performed our J-J anastomosis approximately 4-8 cm past the Samuel limb with two blue loads on the [place] stapler. Crotches were oversewn with 3-0 silk sutures. We placed a 19-Hungarian round Anselmo drain through a separate stab incision in the left upper quadrant over the spleen and adjacent to the anastomosis. We then performed a jejunostomy tube distal to our J-J anastomosis. This was done in the sub-incision through this with a pursestring in a Stand type technique, approximately 2 cc of fluid in the balloon. This was sutured to the skin. We irrigated out the abdomen with 1 liter of sterile saline until all suctioning was clear. No evidence of any bleeding or any complication. All counts were correct at this time. We closed the midline abdomen taking care to resect some redundant midline fascia as the patient had a prominent diastasis. We closed the midline with a running #1 looped PDS suture. We closed the skin with skin nabil and sterile dressing was applied. The patient's drain was sutured in place with a nylon suture placed to bulb suction. A jejunostomy tube was placed to gravity bag drainage. The patient was transferred to the recovery room in stable condition. The patient tolerated the procedure well. No apparent complications. All counts were correct and I was present and scrubbed for the entire procedure. Dr. Menchaca was also present and scrubbed for the entire above procedures and his assistance was required due to the complex operation. MD CARISSA TseG/SSB /3:25 PM /9:55 AM
[2017-03-22] MEDS: ENOXAPARIN SODIUM 40 MG/0.4 ML SYRINGE SQ SCH (13:27)
[2017-03-22] MEDS: PANTOPRAZOLE SODIUM 40 MG VIAL IV PUSH SCH (17:00)
--- NOTE | 2017-03-22 18:42 | HHI.CCPN ---
Subjective Remarks/Hospital Course Mr. 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 He was admitted to Dr. Painting and underwent open total gastrectomy and Wyatt Yonny esophagectomy. Pateint had pre-op chemotherapy by Dr. Luther. Initial plan was for proximal gastrectomy and esophagectomy but apparently disease was more advanced locally than expected. EBL was 200 mL. Postop patient was extubated. I evaluated the patient in the ICU. Patient in moderate distress due to pain. On Morphine IMPLEMENTATION MANAGER. I have ordered Dilaudid 2 mg every 3 hours IV as needed for breakthrough pain. He states the pain is in the incision site. There is no peritoneal signs. Lactic acid 2.1 -will bolus 500 ml NS and continue maintenance fluid at 100 mL/h Subjective 03/22: Currently complaining of phlegm in his throat. Currently afebrile. Remains n.p.o. Abdominal pain better controlled with morphine IMPLEMENTATION MANAGER Objective Vital Signs Date Time Temp Pulse Resp B/P (MAP) Pulse Ox O2 Delivery O2 Flow Rate FiO2 03/22/17 14:28 11 03/22/17 14:00 80 03/22/17 12:00 98.5 120/68 (85) 97 03/22/17 09:45 21 03/22/17 07:00 Nasal Cannula 4.00 Intake and Output 03/22/17 03/22/17 03/23/17 08:00 16:00 00:00 Intake Total 0 ml 300 ml Output Total 670 ml Balance -670 ml 300 ml Result Diagram: 03/22/17 0845 03/22/17 0845 Objective Remarks GEN: 71-year-old male currently with NG and nasal cannula on no acute distress Head: Normocephalic; atraumatic Eyes: Pupils are reactive and equal. ENT: Oral cavity moist airway patent. No thrush Neck: Supple. No jugular venous distension. Respiratory: Lungs are clear to auscultation without rhonchi or wheezing. Cardiovascular: Regular rate and rhythm. S1, S2. No S4. No murmur Abdomen: Midline incision dressing intact with single NARINDER drain and J-tube in place to drainage. Mild tenderness surrounding the incision site. No peritoneal signs Extremities: No visible deformities, no cyanosis, clubbing or edema. Pulses 4+ and equal bilaterally. Musculoskeletal: No tenderness or swelling. Neurologic: AOx3. No sensory or motor deficits, cranial nerves grossly intact. A/P Assessment and Plan NEURO: Glaucoma Postoperative pain control -Holding scheduled ibuprofen/home medication -Continue latanoprost 0.005% 1 drop each eye at night - Morphine IMPLEMENTATION MANAGER per general surgery - IV hydromorphone 2 mg every 3 hours as needed for breakthrough pain, IV Ofirmev 1 g IV every 6 hours as needed for fever/pain 5-10. RESP: Postoperative respiratory insufficiency - Nasal cannula oxygen - Albuterol/ipratropium r aerosols every 6 hours with albuterol aerosols every 2 hours as needed dyspnea - IS while awake -Chest x-ray in a.m. 03/23 CV: Dyslipidemia - Normal saline IV fluids 100 ml per hour- -Holding atorvastatin 40 mg p.o. daily and fenofibrate 145 mg p.o. daily. Resume clinically indicated GI: s/p open total gastrectomy and Wyatt Yonny esophagectomy, s/p J tube insertion Recently diagnosed adenocarcinoma of the distal esophagus extending into the gastric cardia Hypoalbuminemia Elevated transaminases - NPO. Post op management per Dr. Hamm - IV pantoprazole 40 mg q24 hours -Recheck LFTs in a.m. Renal/: BPH History of bladder cancer - Monitor renal function closely. -Currently on normal saline at 100 cc an hour -Holding tamsulosin 0.4 mg p.o. daily. Resume clinically indicated ID: - Continue cefazolin and metronidazole per Dr. Hamm - Monitor for infection HEME/ONC: Adenocarcinoma distal esophagus extending into the gastric cardia (no metastasis ) Normocytic anemia - Monitor CBC, CMP - Medical oncologist Dr Luther - Received preoperative chemo ENDO: Hyperglycemia/diabetes type 2 Hypokalemia - Sliding-scale insulin Aspart with Accu-Cheks every 4 hours to maintain euglycemia -Holding metformin 5 mg p.o. twice daily social medication - Electrolyte replacement per protocol PROPH: - Bilateral lower extremity SCDs. enoxaparin 40 mg sq daily LINES: - Utilize peripheral IVs, central line if needed Level 2 follow-up Al Fernandes MD Mar 22, 2017 18:42
[2017-03-22] MEDS ORDERED: RESP: ALBUTEROL 2.5 MG/3 ML NEB (PRN) NEB (19:00)
--- NOTE | 2017-03-22 19:23 | HHI.PR ---
Subjective Subjective Notes Doing well Resting in bed at bedside Objective Vitals/I&O Vital Signs Date Time Temp Pulse Resp B/P (MAP) Pulse Ox O2 Delivery O2 Flow Rate FiO2 03/22/17 14:28 11 03/22/17 14:00 80 03/22/17 12:00 98.5 120/68 (85) 97 03/22/17 09:45 21 03/22/17 07:00 Nasal Cannula 4.00 Labs Laboratory Tests Test 03/22/17 08:45 White Blood Count 9.4 Red Blood Count 4.22 Hemoglobin 12.7 Hematocrit 38.6 Mean Corpuscular Volume 91.4 Mean Corpuscular Hemoglobin 30.1 Mean Corpuscular Hemoglobin Concent 33.0 Red Cell Distribution Width 15.6 Platelet Count 200 Mean Platelet Volume 8.3 Neutrophils (%) (Auto) 89.1 Lymphocytes (%) (Auto) 5.1 Monocytes (%) (Auto) 5.4 Eosinophils (%) (Auto) 0.1 Basophils (%) (Auto) 0.3 Neutrophils # (Auto) 8.4 Lymphocytes # (Auto) 0.5 Monocytes # (Auto) 0.5 Eosinophils # (Auto) 0.0 Basophils # (Auto) 0.0 CBC Comment DIFF FINAL Differential Comment Blood Urea Nitrogen 13 Creatinine 0.95 Random Glucose 104 Calcium Level 8.5 Sodium Level 143 Potassium Level 4.5 Chloride Level 110 Carbon Dioxide Level 24.2 Anion Gap 9 Estimat Glomerular Filtration Rate 78 Cardiovascular: Regular Lungs: Clear Abdomen: Other (inc c/d/i; NARINDER with SS drainage; J tube to gravity bag ) Extremities: No edema Narrative Exam NGT to LIWS A/P Assessment and Plan 71 year old male POD1 open total gastrectomy and esophagoenterostomy and Samuel-en -Y -Pain control -OOB as tolerated -IVF -NARINDER to bulb suction -Continue NGT to LIWS Attending Statement The exam, history, and the medical decision-making described in the above note were completed with the assistance of the mid-level provider. I reviewed and agree with the findings presented. I attest that I had a [id number] encounter with the patient on the same day, and personally performed and documented my assessment and findings in the medical record. s/p total gastrectomy, stable Abdominal exam: stable postop tenderness, no peritonitis, incision clean/dry/ intact NARINDER clear continue postoperative management Sandrine Narvaez Mar 22, 2017 19:23 Dontrell Hamm MD Mar 30, 2017 06:44
[2017-03-22] MEDS: LATANOPROST 0.005% OPHT SOLN 2.5 ML BTL EACH EYE SCH (20:41)
[2017-03-22] MEDS: RESP: ALBUTEROL 2.5 MG/IPRATROPIUM 0.5 MG NEB (SCH) NEB (21:30)
[2017-03-23] VITALS (13 sets, daily range): BP systolic 142–168; BP diastolic 73–94; PULSE 72–90; RESP 10–20; TEMP 97.3–99.1; O2SAT 92–100
[2017-03-23] MEDS: MORPHINE SULFATE 30 MG/30 ML PCA IV SCH ×2 (01:22→21:08)
[2017-03-23] MEDS: RESP: ALBUTEROL 2.5 MG/IPRATROPIUM 0.5 MG NEB (SCH) NEB ×4 (03:48→19:30)
[2017-03-23] MEDS: INSULIN ASPART SUPPLEMENTAL SCALE SQ SCH ×5 (04:00→20:00)
[2017-03-23] MEDS: SODIUM CHLOR 0.9% 1000 ML INJ 1,000 ML IV SCH (04:27)
[2017-03-23 05:25] LABS: AUTOMATED NEUTROPHIL # 7.5 TH/MM3 (1.8-7.7); BASOPHIL % 0.3 % (0.0-2.0); EOSINOPHIL # 0.1 TH/MM3 (0-0.4); HEMATOCRIT 36.7 % (39.0-51.0); HEMOGLOBIN 12.2 GM/DL (13.0-17.0); LYMPH % 6.6 % (9.0-44.0); LYMPHOCYTE # 0.6 TH/MM3 (1.0-4.8); MEAN CELL VOLUME 91.7 FL (80.0-100.0); MEAN CORPUSCULAR HEMOGLOBIN 30.6 PG (27.0-34.0); MEAN CORPUSCULAR HGB CONC 33.4 % (32.0-36.0); MEAN PLATELET VOLUME 8.1 FL (7.0-11.0); MONO % 5.7 % (0.0-8.0); MONOCYTE # 0.5 TH/MM3 (0-0.9); NEUT % 86.4 % (16.0-70.0); PLATELET COUNT 180 TH/MM3 (150-450); WHITE BLOOD COUNT 8.7 TH/MM3 (4.0-11.0)
--- NOTE | 2017-03-23 05:31 | RADRPT ---
EXAM DATE/TIME: 03/23/2017 04:39 [facility] COMPARISON: No previous studies available for comparison. INDICATIONS : Short of breath. MEDICAL HISTORY : None. SURGICAL HISTORY : Gastrectomy. ENCOUNTER: Initial ACUITY: 1 day PAIN SCORE: Non-responsive. LOCATION: Bilateral chest FINDINGS: A single view of the chest demonstrates left-sided port tip in superior vena cava. NG tip in stomach. Bilateral mostly basilar and perihilar airspace consolidation. Small effusions. No pneumothorax. CONCLUSION: 1. Bilateral mostly basilar and perihilar airspace disease with small effusions. Heart size upper shook its normal. Abimael Harmon MD on March 23, 2017 at 5:28 Board Certified Radiologist. This report was verified electronically.
[2017-03-23 05:49] LABS: ALBUMIN 2.6 GM/DL (3.4-5.0); ALT (GPT) 121 U/L (12-78); AST (GOT) 116 U/L (15-37); BICARBONATE 26.8 MEQ/L (21.0-32.0); BLOOD UREA NITROGEN 14 MG/DL (7-18); CALCIUM 8.8 MG/DL (8.5-10.1); CHLORIDE 110 MEQ/L (98-107); GLOMERULAR FILTRATION RATE 83 ML/MIN (>89); GLUCOSE,RANDOM 103 MG/DL (74-106); MAGNESIUM 1.9 MG/DL (1.5-2.5); SODIUM (NA) 145 MEQ/L (136-145)
[2017-03-23] MEDS: PCA - TOTAL MG MORPHINE DELIVERED PER SHIFT SCH ×3 (06:00→20:56)
[2017-03-23 06:12] LABS: ALKALINE PHOSPHATASE 50 U/L (45-117); PHOSPHORUS 2.4 MG/DL (2.5-4.9); TOTAL BILIRUBIN ADULT 0.3 MG/DL (0.2-1.0); TOTAL PROTEIN 5.6 GM/DL (6.4-8.2)
--- NOTE | 2017-03-23 08:26 | HHI.CCPN ---
Subjective Remarks/Hospital Course Mr. 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 He was admitted to Dr. Painting and underwent open total gastrectomy and Wyatt Yonny esophagectomy. Pateint had pre-op chemotherapy by Dr. Luther. Initial plan was for proximal gastrectomy and esophagectomy but apparently disease was more advanced locally than expected. EBL was 200 mL. Postop patient was extubated. I evaluated the patient in the ICU. Patient in moderate distress due to pain. On Morphine SCREENING UNIT REGISTERED NURSE. I have ordered Dilaudid 2 mg every 3 hours IV as needed for breakthrough pain. He states the pain is in the incision site. There is no peritoneal signs. Lactic acid 2.1 -will bolus 500 ml NS and continue maintenance fluid at 100 mL/h 03/22: Currently complaining of phlegm in his throat. Currently afebrile. Remains n.p.o. Abdominal pain better controlled with morphine SCREENING UNIT REGISTERED NURSE Subjective 03/23: Resting in bed on nasal cannula in no acute distress. Morphine SCREENING UNIT REGISTERED NURSE controlling pain except with movement. Denies phlegm/posterior pharynx pain. NARINDER 250. Anselmo 50/95 Objective Vital Signs Date Time Temp Pulse Resp B/P (MAP) Pulse Ox O2 Delivery O2 Flow Rate FiO2 03/23/17 06:00 78 03/23/17 06:00 12 03/23/17 04:00 99.1 142/80 (100) 100 03/22/17 19:30 Nasal Cannula 3.00 03/22/17 09:45 21 Intake and Output 03/23/17 03/23/17 03/24/17 08:00 16:00 00:00 Intake Total 0 ml Output Total 1375 ml Balance -1375 ml Result Diagram: 03/23/179 03/23/17458 Imaging Last Impressions Chest X-Ray 03/23/17 06 Signed Impressions: Service Date/Time: Thursday, March 23, 2017 04:39 - CONCLUSION: 1. Bilateral mostly basilar and perihilar airspace disease with small effusions. Heart size upper limits normal. Abimael Harmon MD Objective Remarks GEN: 71-year-old male currently with NG and nasal cannula on no acute distress Head: Normocephalic; atraumatic Eyes: Pupils are reactive and equal. ENT: Oral cavity moist airway patent. No thrush Neck: Supple. No jugular venous distension. Respiratory: Lungs are clear to auscultation without rhonchi or wheezing. Cardiovascular: Regular rate and rhythm. S1, S2. No S4. No murmur Abdomen: Midline incision dressing intact with single NARINDER drain and J-tube in place to drainage. Mild tenderness surrounding the incision site. No peritoneal signs. NARINDER -250. Anselmo 50/95 Extremities: No visible deformities, no cyanosis, clubbing or edema. Pulses 4+ and equal bilaterally. Musculoskeletal: No tenderness or swelling. Neurologic: AOx3. No sensory or motor deficits, cranial nerves grossly intact. A/P Assessment and Plan NEURO: Glaucoma Postoperative pain control -Holding scheduled ibuprofen/home medication -Continue latanoprost 0.005% 1 drop each eye at night - Morphine SCREENING UNIT REGISTERED NURSE per general surgery - IV hydromorphone 2 mg every 3 hours as needed for breakthrough pain, IV Ofirmev 1 g IV every 6 hours as needed for fever/pain 5-10. RESP: Postoperative respiratory insufficiency - Nasal cannula oxygen titrated to maintain saturations greater than equal to 92 % - Albuterol/ipratropium r aerosols every 6 hours with albuterol aerosols every 2 hours as needed dyspnea - IS while awake CV: Dyslipidemia - Normal saline IV fluids 100 ml per hour- -Holding atorvastatin 40 mg p.o. daily and fenofibrate 145 mg p.o. daily. Resume clinically indicated GI: s/p open total gastrectomy and Wyatt Yonny esophagectomy, s/p J tube insertion Recently diagnosed adenocarcinoma of the distal esophagus extending into the gastric cardia Hypoalbuminemia Elevated transaminases - NPO. Post op management per Dr. Hamm - IV pantoprazole 40 mg q24 hours -Recheck LFTs in a.m. remain elevated but trending downward Renal/: BPH History of bladder cancer - Monitor renal function closely. -Currently on normal saline at 100 cc an hour -Holding tamsulosin 0.4 mg p.o. daily. Resume clinically indicated ID: - Continue cefazolin and metronidazole per Dr. Hamm - Monitor for infection HEME/ONC: Adenocarcinoma distal esophagus extending into the gastric cardia (no metastasis ) Normocytic anemia Thrombocytopenia - Monitor CBC, CMP - Medical oncologist Dr Luther - Received preoperative chemo FEN/ENDO: Hyperglycemia/diabetes type 2 Hypophosphatemia - Sliding-scale insulin Aspart with Accu-Cheks every 4 hours to maintain euglycemia -Holding metformin 5 mg p.o. twice daily social medication - Electrolyte replacement per protocol. 15 mmol potassium phosphorus IV 1. Recheck in a.m. PROPH: - Bilateral lower extremity SCDs. enoxaparin 40 mg sq daily LINES: - Utilize peripheral IVs, central line if needed Level 2 follow-up Al Fernandes MD Mar 23, 2017 08:26
[2017-03-23] MEDS ORDERED: MAGNESIUM SULFATE 1 GM PREMIX 100 ML IV ONE (09:00)
[2017-03-23] MEDS ORDERED: POTASSIUM PHOSPHATE INJ 15 MMOL in SODIUM CHLORIDE 0.9% INJ 150 ML IV ONE (09:00)
[2017-03-23] MEDS: SODIUM CHLORIDE 0.9% FLUSH 10 ML FLUSH IV FLUSH SCH ×2 (09:00→20:51)
[2017-03-23] MEDS: LACTATED RINGER'S 1000 ML INJ 1,000 ML IV SCH ×2 (09:18→20:54)
--- NOTE | 2017-03-23 11:56 | HHI.PR ---
cc: Dontrell Hamm MD Subjective Subjective Notes Resting in bed Getting ready to get to chair with RN Nancy Pain controlled with AUDIO VISUAL PROJECT MANAGER Objective Vitals/I&O Vital Signs Date Time Temp Pulse Resp B/P (MAP) Pulse Ox O2 Delivery O2 Flow Rate FiO2 03/23/17 10:22 97 Nasal Cannula 2.00 03/23/17 10:00 74 03/23/17 08:00 97.3 10 166/73 (104) 03/22/17 09:45 21 Labs Laboratory Tests Test 03/23/17 04:59 White Blood Count 8.7 Red Blood Count 4.00 Hemoglobin 12.2 Hematocrit 36.7 Mean Corpuscular Volume 91.7 Mean Corpuscular Hemoglobin 30.6 Mean Corpuscular Hemoglobin Concent 33.4 Red Cell Distribution Width 16.0 Platelet Count 180 Mean Platelet Volume 8.1 Neutrophils (%) (Auto) 86.4 Lymphocytes (%) (Auto) 6.6 Monocytes (%) (Auto) 5.7 Eosinophils (%) (Auto) 1.0 Basophils (%) (Auto) 0.3 Neutrophils # (Auto) 7.5 Lymphocytes # (Auto) 0.6 Monocytes # (Auto) 0.5 Eosinophils # (Auto) 0.1 Basophils # (Auto) 0.0 CBC Comment DIFF FINAL Differential Comment Blood Urea Nitrogen 14 Creatinine 0.90 Random Glucose 103 Total Protein 5.6 Albumin 2.6 Calcium Level 8.8 Phosphorus Level 2.4 Magnesium Level 1.9 Alkaline Phosphatase 50 Aspartate Amino Transf (AST/SGOT) 116 Alanine Aminotransferase (ALT/SGPT) 121 Total Bilirubin 0.3 Sodium Level 145 Potassium Level 4.1 Chloride Level 110 Carbon Dioxide Level 26.8 Anion Gap 8 Estimat Glomerular Filtration Rate 83 Cardiovascular: Regular Lungs: Clear Abdomen: Other (midline incision with clean dressing on; J tube to gravity bag ; NARINDER with SS drainage ) Extremities: No edema Narrative Exam NGT to LIWS A/P Assessment and Plan 71 year old male POD2 open total gastrectomy and esophagoenterostomy and Samuel-en -Y -Pain control with AUDIO VISUAL PROJECT MANAGER -OOB as tolerated -IVF -NARINDER to bulb suction -Continue NGT to LIWS -Transfer to 7N Attending Statement The exam, history, and the medical decision-making described in the above note were completed with the assistance of the mid-level provider. I reviewed and agree with the findings presented. I attest that I had a [id number] encounter with the patient on the same day, and personally performed and documented my assessment and findings in the medical record. s/p total gastrectomy, stable Abdominal exam: stable postop tenderness, no peritonitis, incision clean/dry/ intact fu path continue postoperative management Sandrine Narvaez Mar 23, 2017 11:56 Dontrell Hamm MD Mar 30, 2017 06:45
[2017-03-23] MEDS: ENOXAPARIN SODIUM 40 MG/0.4 ML SYRINGE SQ SCH (12:24)
[2017-03-23] MEDS: PANTOPRAZOLE SODIUM 40 MG VIAL IV PUSH SCH (16:02)
[2017-03-23] MEDS: LATANOPROST 0.005% OPHT SOLN 2.5 ML BTL EACH EYE SCH (21:00)
[2017-03-24] VITALS (9 sets, daily range): BP systolic 152–196; BP diastolic 80–89; PULSE 69–85; RESP 18–20; TEMP 98.4–99.3; O2SAT 91–93
[2017-03-24] MEDS: RESP: ALBUTEROL 2.5 MG/IPRATROPIUM 0.5 MG NEB (SCH) NEB ×4 (04:00→19:45)
[2017-03-24] MEDS: INSULIN ASPART SUPPLEMENTAL SCALE SQ SCH ×6 (04:00→20:00)
[2017-03-24] MEDS: ENALAPRILAT 1.25 MG/ML VIAL IV PUSH PRN (05:34)
[2017-03-24] MEDS: PCA - TOTAL MG MORPHINE DELIVERED PER SHIFT SCH ×3 (05:37→21:38)
[2017-03-24 07:26] LABS: HEMATOCRIT 33.8 % (39.0-51.0); HEMOGLOBIN 11.4 GM/DL (13.0-17.0); MEAN CELL VOLUME 90.6 FL (80.0-100.0); MEAN CORPUSCULAR HEMOGLOBIN 30.4 PG (27.0-34.0); MEAN CORPUSCULAR HGB CONC 33.6 % (32.0-36.0); MEAN PLATELET VOLUME 8.3 FL (7.0-11.0); PLATELET COUNT 173 TH/MM3 (150-450); RED BLOOD COUNT 3.73 MIL/MM3 (4.50-5.90); RED CELL DISTRIBUTION WIDTH 15.6 % (11.6-17.2); WHITE BLOOD COUNT 6.4 TH/MM3 (4.0-11.0)
[2017-03-24 07:40] LABS: BICARBONATE 24.9 MEQ/L (21.0-32.0); CALCIUM 8.5 MG/DL (8.5-10.1); CREATININE 0.62 MG/DL (0.60-1.30); MAGNESIUM 1.8 MG/DL (1.5-2.5); PHOSPHORUS 1.8 MG/DL (2.5-4.9)
[2017-03-24] MEDS: SODIUM CHLORIDE 0.9% FLUSH 10 ML FLUSH IV FLUSH SCH ×2 (08:50→21:33)
[2017-03-24] MEDS: LACTATED RINGER'S 1000 ML INJ 1,000 ML IV SCH ×2 (08:51→21:33)
[2017-03-24] MEDS: ENOXAPARIN SODIUM 40 MG/0.4 ML SYRINGE SQ SCH (12:30)
--- NOTE | 2017-03-24 13:39 | HHI.PR ---
Subjective Subjective Notes pain controlled, now new c/o, OOB Objective Vitals/I&O Vital Signs Date Time Temp Pulse Resp B/P (MAP) Pulse Ox O2 Delivery O2 Flow Rate FiO2 03/24/17 12:38 16 03/24/17 12:00 98.7 74 153/89 (110) 91 03/24/17 08:47 21 03/23/17 10:22 Nasal Cannula 2.00 Labs Laboratory Tests Test 03/24/17 05:45 White Blood Count 6.4 Red Blood Count 3.73 Hemoglobin 11.4 Hematocrit 33.8 Mean Corpuscular Volume 90.6 Mean Corpuscular Hemoglobin 30.4 Mean Corpuscular Hemoglobin Concent 33.6 Red Cell Distribution Width 15.6 Platelet Count 173 Mean Platelet Volume 8.3 Blood Urea Nitrogen 13 Creatinine 0.62 Random Glucose 86 Calcium Level 8.5 Phosphorus Level 1.8 Magnesium Level 1.8 Sodium Level 143 Potassium Level 3.6 Chloride Level 111 Carbon Dioxide Level 24.9 Anion Gap 7 Estimat Glomerular Filtration Rate 128 Cardiovascular: Regular Lungs: Clear Abdomen: Non-distended, Post-op tenderness A/P Assessment and Plan 71yo male s/p total gastrectomy, stable postop. NG out. j-tube to gravity drain. await bowel function. start trickle tube feeds tomorrow if bowel function returning. Dontrell Hamm MD Mar 24, 2017 13:39
[2017-03-24] MEDS: MORPHINE SULFATE 30 MG/30 ML PCA IV SCH (15:12)
[2017-03-24] MEDS: PANTOPRAZOLE SODIUM 40 MG VIAL IV PUSH SCH (16:34)
[2017-03-24] MEDS: LATANOPROST 0.005% OPHT SOLN 2.5 ML BTL EACH EYE SCH (21:00)
[2017-03-25] VITALS (9 sets, daily range): BP systolic 159–197; BP diastolic 81–91; PULSE 73–92; RESP 16–20; TEMP 97.5–100.4; O2SAT 92–96
[2017-03-25] MEDS: INSULIN ASPART SUPPLEMENTAL SCALE SQ SCH ×6 (04:00→20:00)
[2017-03-25] MEDS: PCA - TOTAL MG MORPHINE DELIVERED PER SHIFT SCH ×3 (04:09→21:00)
[2017-03-25] MEDS: RESP: ALBUTEROL 2.5 MG/IPRATROPIUM 0.5 MG NEB (SCH) NEB ×4 (04:40→22:00)
[2017-03-25] MEDS: MORPHINE SULFATE 30 MG/30 ML PCA IV SCH ×2 (04:51→22:18)
[2017-03-25] MEDS: SODIUM CHLORIDE 0.9% FLUSH 10 ML FLUSH IV FLUSH SCH ×2 (08:35→20:58)
[2017-03-25] MEDS: LACTATED RINGER'S 1000 ML INJ 1,000 ML IV SCH ×2 (08:35→20:59)
[2017-03-25] MEDS: ENOXAPARIN SODIUM 40 MG/0.4 ML SYRINGE SQ SCH (12:00)
[2017-03-25] MEDS: ENALAPRILAT 1.25 MG/ML VIAL IV PUSH PRN ×2 (12:06→20:58)
--- NOTE | 2017-03-25 13:33 | HHI.PR ---
cc: Windy Sanchez MD Subjective Subjective Notes DAILY PROGRESS NOTE FOR SURGICAL ATTENDING, DR. WINDY SANCHEZ Patient sitting up in chair Would like to try something by mouth Abdominal pain improved Objective Vitals/I&O Vital Signs Date Time Temp Pulse Resp B/P (MAP) Pulse Ox O2 Delivery O2 Flow Rate FiO2 03/25/17 12:00 98.8 92 20 173/89 (117) 95 03/25/17 08:30 Room Air 03/24/17 19:45 21 03/23/17 10:22 2.00 Labs Laboratory Tests Test 03/21/17 14:32 03/23/17 04:59 03/24/17 05:45 Lactic Acid Level 2.1 mmol/L Neutrophils (%) (Auto) 86.4 % Lymphocytes (%) (Auto) 6.6 % Monocytes (%) (Auto) 5.7 % Eosinophils (%) (Auto) 1.0 % Basophils (%) (Auto) 0.3 % Neutrophils # (Auto) 7.5 TH/MM3 Lymphocytes # (Auto) 0.6 TH/MM3 Monocytes # (Auto) 0.5 TH/MM3 Eosinophils # (Auto) 0.1 TH/MM3 Basophils # (Auto) 0.0 TH/MM3 CBC Comment DIFF FINAL Differential Comment Blood Urea Nitrogen 14 MG/DL 13 MG/DL Creatinine 0.90 MG/DL 0.62 MG/DL Random Glucose 103 MG/DL 86 MG/DL Total Protein 5.6 GM/DL Albumin 2.6 GM/DL Calcium Level 8.8 MG/DL 8.5 MG/DL Phosphorus Level 2.4 MG/DL 1.8 MG/DL Magnesium Level 1.9 MG/DL 1.8 MG/DL Alkaline Phosphatase 50 U/L Aspartate Amino Transf (AST/SGOT) 116 U/L Alanine Aminotransferase (ALT/SGPT) 121 U/L Total Bilirubin 0.3 MG/DL Sodium Level 145 MEQ/L 143 MEQ/L Potassium Level 4.1 MEQ/L 3.6 MEQ/L Chloride Level 110 MEQ/L 111 MEQ/L Carbon Dioxide Level 26.8 MEQ/L 24.9 MEQ/L White Blood Count 6.4 TH/MM3 Red Blood Count 3.73 MIL/MM3 Hemoglobin 11.4 GM/DL Hematocrit 33.8 % Mean Corpuscular Volume 90.6 FL Mean Corpuscular Hemoglobin 30.4 PG Mean Corpuscular Hemoglobin Concent 33.6 % Red Cell Distribution Width 15.6 % Platelet Count 173 TH/MM3 Mean Platelet Volume 8.3 FL Anion Gap 7 MEQ/L Estimat Glomerular Filtration Rate 128 ML/MIN Radiology Last Impressions Chest X-Ray 03/23/17 0600 Signed Impressions: Service Date/Time: Thursday, March 23, 2017 04:39 - CONCLUSION: 1. Bilateral mostly basilar and perihilar airspace disease with small effusions. Heart size upper limits normal. 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 WINDY SANCHEZ I attest that I had a [id number] encounter with the patient on the same day, and personally performed and documented my assessment and findings in the medical record. The following services were provided during this hospital visit: Chart data review, vital sign assessments/reviewing monitor data Review of consultations notes if present. Medication orders/review and/or management Ordering and/or reviewing lab tests Ordering and/or interpreting/reviewing x-rays and/or diagnostic studies Care of the patient and discussion of the patient with the care team Documentation time To help prompt me to consider important information that might be impacting today's encounter and assessment, information from prior notes written by myself or my colleagues may have been "brought forward/copy and pasted" into today's note. Windy Sanchez MD Mar 25, 2017 13:33
[2017-03-25] MEDS: PANTOPRAZOLE SODIUM 40 MG VIAL IV PUSH SCH (17:00)
[2017-03-25] MEDS: LATANOPROST 0.005% OPHT SOLN 2.5 ML BTL EACH EYE SCH ×2 (20:58→21:03)
[2017-03-26] VITALS (10 sets, daily range): BP systolic 140–175; BP diastolic 80–93; PULSE 68–94; RESP 18–20; TEMP 96.8–98.8; O2SAT 93–96
[2017-03-26] MEDS: INSULIN ASPART SUPPLEMENTAL SCALE SQ SCH ×6 (04:00→19:58)
[2017-03-26] MEDS: SODIUM CHLORIDE 0.9% FLUSH 10 ML FLUSH IV FLUSH SCH ×2 (09:00→21:32)
[2017-03-26] MEDS: RESP: ALBUTEROL 2.5 MG/IPRATROPIUM 0.5 MG NEB (SCH) NEB ×2 (09:15→15:16)
[2017-03-26] MEDS: LACTATED RINGER'S 1000 ML INJ 1,000 ML IV SCH ×3 (09:51→21:35)
[2017-03-26] MEDS: ENALAPRILAT 1.25 MG/ML VIAL IV PUSH PRN (09:52)
[2017-03-26] MEDS: ENOXAPARIN SODIUM 40 MG/0.4 ML SYRINGE SQ SCH (12:20)
[2017-03-26] MEDS: PCA - TOTAL MG MORPHINE DELIVERED PER SHIFT SCH ×2 (14:00→21:32)
--- NOTE | 2017-03-26 16:11 | HHI.PR ---
Subjective Subjective Notes Resting in bed Was OOB and ambulated in room Objective Vitals/I&O Vital Signs Date Time Temp Pulse Resp B/P (MAP) Pulse Ox O2 Delivery O2 Flow Rate FiO2 03/26/17 12:00 98.5 89 19 163/80 (107) 95 03/25/17 08:30 Room Air 03/24/17 19:45 21 03/23/17 10:22 2.00 Radiology Last Impressions Chest X-Ray 03/23/17 0600 Signed Impressions: Service Date/Time: Thursday, March 23, 2017 04:39 - CONCLUSION: 1. Bilateral mostly basilar and perihilar airspace disease with small effusions. Heart size upper limits normal. 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 I reviewed and agree with the findings presented. I attest that I had a [id number] encounter with the patient on the same day, and personally performed and documented my assessment and findings in the medical record. s/p total gastrectomy, stable Abdominal exam: stable postop tenderness, no peritonitis, incision clean/dry/ intact NARINDER clear, NG out continue postoperative management/pain control Sandrine Narvaez Mar 26, 2017 16:11 Dontrell Hamm MD Mar 30, 2017 06:49
[2017-03-26] MEDS: PANTOPRAZOLE SODIUM 40 MG VIAL IV PUSH SCH (18:39)
[2017-03-26] MEDS: MORPHINE SULFATE 30 MG/30 ML PCA IV SCH (21:26)
[2017-03-26] MEDS: LATANOPROST 0.005% OPHT SOLN 2.5 ML BTL EACH EYE SCH (21:30)
[2017-03-27] VITALS (8 sets, daily range): BP systolic 139–174; BP diastolic 80–91; PULSE 73–83; RESP 16–20; TEMP 96.1–99; O2SAT 94–95
[2017-03-27] MEDS: INSULIN ASPART SUPPLEMENTAL SCALE SQ SCH ×7 (00:33→22:00)
[2017-03-27] MEDS: PCA - TOTAL MG MORPHINE DELIVERED PER SHIFT SCH ×3 (05:32→22:00)
[2017-03-27] MEDS: SODIUM CHLORIDE 0.9% FLUSH 10 ML FLUSH IV FLUSH SCH ×2 (09:00→21:00)
[2017-03-27] MEDS: ENOXAPARIN SODIUM 40 MG/0.4 ML SYRINGE SQ SCH (09:49)
--- NOTE | 2017-03-27 14:06 | HHI.PR ---
Subjective Subjective Notes Resting in bed Has been OOB and ambulated today Enjoying popsicles Objective Vitals/I&O Vital Signs Date Time Temp Pulse Resp B/P (MAP) Pulse Ox O2 Delivery O2 Flow Rate FiO2 03/27/17 12:00 99.0 83 18 155/80 (105) 95 03/25/17 08:30 Room Air 03/24/17 19:45 21 03/23/17 10:22 2.00 Radiology Last Impressions Chest X-Ray 03/23/17 0600 Signed Impressions: Service Date/Time: Thursday, March 23, 2017 04:39 - CONCLUSION: 1. Bilateral mostly basilar and perihilar airspace disease with small effusions. Heart size upper limits normal. 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 I reviewed and agree with the findings presented. I attest that I had a [id number] encounter with the patient on the same day, and personally performed and documented my assessment and findings in the medical record. s/p total gastrectomy, stable Abdominal exam: stable postop tenderness, no peritonitis, incision clean/dry/ intact NARINDER clear while taking clears continue postoperative management pain better Dc NARINDER later today Dc planning for HH with TF Sandrine Narvaez Mar 27, 2017 14:06 Dontrell Hamm MD Mar 30, 2017 06:57
--- NOTE | 2017-03-27 14:10 | HHI.FF ---
Face to Face Verification Diagnosis: (1) Status post gastrectomy Physical Therapy Order: Evaluate and Treat, Improve ambulation, Strength and gait training Instructions: No restrictions Home Health Nursing Order: Wound care and dressing changes Nursing assessment with vital signs Instructions: Midline incision--- clean dry dressing daily J tube ---- Tube feeding---- Jevity 1.5 ---60 cc/hr continuos; flush 20 cc daily ; NO CRUSHED MEDICATIONS THROUGH TUBE! I have seen patient Crow Bowles on 03/27/17. My clinical findings support the need for the requested home health care services because: Limited ability to care for self High risk of falls I certify that my clinical findings support that this patient is homebound because: Post-op weakness Sandrine Narvaez Mar 27, 2017 14:10
[2017-03-27] MEDS ORDERED: KANGAROO JOEY P1 MIS (14:12)
[2017-03-27] MEDS ORDERED: WALKER WHEELS/F1 MIS (14:17)
[2017-03-27] MEDS: PANTOPRAZOLE SODIUM 40 MG VIAL IV PUSH SCH (17:34)
[2017-03-27] MEDS: LACTATED RINGER'S 1000 ML INJ 1,000 ML IV SCH ×2 (17:36→22:46)
[2017-03-27] MEDS: LATANOPROST 0.005% OPHT SOLN 2.5 ML BTL EACH EYE SCH (22:53)
[2017-03-28] VITALS: BP 158/90; PULSE 75; RESP 20; TEMP 97.6; O2SAT 94
[2017-03-28] MEDS: MORPHINE SULFATE 30 MG/30 ML PCA IV SCH (03:30)
[2017-03-28] MEDS: INSULIN ASPART SUPPLEMENTAL SCALE SQ SCH ×7 (04:00→20:00)
[2017-03-28] MEDS: PCA - TOTAL MG MORPHINE DELIVERED PER SHIFT SCH ×3 (06:00→20:00)
[2017-03-28 08:00] VITALS: BP 150/85; PULSE 67; RESP 18; TEMP 96.4; O2SAT 96
[2017-03-28] MEDS: SODIUM CHLORIDE 0.9% FLUSH 10 ML FLUSH IV FLUSH SCH ×2 (08:41→20:59)
[2017-03-28] MEDS: LACTATED RINGER'S 1000 ML INJ 1,000 ML IV SCH ×2 (08:46→20:58)
[2017-03-28] MEDS: ENOXAPARIN SODIUM 40 MG/0.4 ML SYRINGE SQ SCH (11:28)
[2017-03-28 12:00] VITALS: BP 134/80; PULSE 85; RESP 18; TEMP 98.4; O2SAT 94
--- NOTE | 2017-03-28 13:47 | HHI.PR ---
Subjective Subjective Notes Resting in bed Has been OOB today Eager to get NARINDER drain out Objective Vitals/I&O Vital Signs Date Time Temp Pulse Resp B/P (MAP) Pulse Ox O2 Delivery O2 Flow Rate FiO2 03/28/17 12:00 98.4 85 18 134/80 (98) 94 03/25/17 08:30 Room Air 03/24/17 19:45 21 Radiology Last Impressions Chest X-Ray 03/23/17 0600 Signed Impressions: Service Date/Time: Thursday, March 23, 2017 04:39 - CONCLUSION: 1. Bilateral mostly basilar and perihilar airspace disease with small effusions. Heart size upper limits normal. 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 I reviewed and agree with the findings presented. I attest that I had a [id number] encounter with the patient on the same day, and personally performed and documented my assessment and findings in the medical record. s/p total gastrectomy, stable Abdominal exam: incision clean/dry/intact, non-tender continue TF, working toward DC home next few days Sandrine Narvaez Mar 28, 2017 13:47 Dontrell Hamm MD Mar 30, 2017 07:02
[2017-03-28 16:00] VITALS: BP 161/75; PULSE 80; RESP 19; TEMP 97.4; O2SAT 95
[2017-03-28] MEDS: PANTOPRAZOLE SODIUM 40 MG VIAL IV PUSH SCH (17:55)
[2017-03-28 20:00] VITALS: BP 167/91; PULSE 79; RESP 18; TEMP 98.1; O2SAT 92
[2017-03-28] MEDS: LATANOPROST 0.005% OPHT SOLN 2.5 ML BTL EACH EYE SCH (21:22)
[2017-03-29] VITALS (8 sets, daily range): BP systolic 133–161; BP diastolic 71–99; PULSE 73–83; RESP 18–19; TEMP 96.6–98.4; O2SAT 93–97
[2017-03-29] MEDS: INSULIN ASPART SUPPLEMENTAL SCALE SQ SCH ×6 (04:00→19:57)
[2017-03-29] MEDS: PCA - TOTAL MG MORPHINE DELIVERED PER SHIFT SCH ×3 (05:38→20:00)
[2017-03-29] MEDS: SODIUM CHLORIDE 0.9% FLUSH 10 ML FLUSH IV FLUSH SCH ×2 (08:10→19:57)
[2017-03-29] MEDS: ACETAMINOPHEN 325MG/HYDROcodone 7.5MG/15ML UDC PO PRN (10:29)
--- NOTE | 2017-03-29 12:23 | HHI.PR ---
Subjective Subjective Notes Resting in bed No complaints Glad he can have some clear liquids Objective Vitals/I&O Vital Signs Date Time Temp Pulse Resp B/P (MAP) Pulse Ox O2 Delivery O2 Flow Rate FiO2 03/29/17 09:45 93 21 03/29/17 08:00 98.4 73 18 133/83 (100) 03/25/17 08:30 Room Air Radiology Last Impressions Chest X-Ray 03/23/17 0600 Signed Impressions: Service Date/Time: Thursday, March 23, 2017 04:39 - CONCLUSION: 1. Bilateral mostly basilar and perihilar airspace disease with small effusions. Heart size upper limits normal. 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 I reviewed and agree with the findings presented. I attest that I had a [id number] encounter with the patient on the same day, and personally performed and documented my assessment and findings in the medical record. s/p total gastrectomy, stable Abdominal exam: no peritonitis, incision clean/dry/intact TF goal is 50 DC diet is fulls will work toward DC home Sunday with Sandrine Dorantes/Dinkey Locomotive Operator NEAL Mar 29, 2017 12:23 Dontrell Hamm MD Mar 30, 2017 07:22
[2017-03-29] MEDS: ENOXAPARIN SODIUM 40 MG/0.4 ML SYRINGE SQ SCH (12:45)
[2017-03-29] MEDS: PANTOPRAZOLE SODIUM 40 MG VIAL IV PUSH SCH (17:36)
[2017-03-29] MEDS: LACTATED RINGER'S 1000 ML INJ 1,000 ML IV SCH (17:37)
[2017-03-29] MEDS: LATANOPROST 0.005% OPHT SOLN 2.5 ML BTL EACH EYE SCH (20:00)
[2017-03-30] VITALS: BP 162/91; PULSE 66; RESP 18; TEMP 97.1; O2SAT 93
[2017-03-30] MEDS: MORPHINE SULFATE 30 MG/30 ML PCA IV SCH (00:47)
[2017-03-30] MEDS: ENALAPRILAT 1.25 MG/ML VIAL IV PUSH PRN (00:50)
[2017-03-30] MEDS: INSULIN ASPART SUPPLEMENTAL SCALE SQ SCH ×4 (03:46→12:17)
[2017-03-30] MEDS: PCA - TOTAL MG MORPHINE DELIVERED PER SHIFT SCH (03:47)
[2017-03-30 04:45] VITALS: BP 134/85; PULSE 96; RESP 18; TEMP 96.1; O2SAT 92
[2017-03-30] MEDS: LACTATED RINGER'S 1000 ML INJ 1,000 ML IV SCH (06:05)
[2017-03-30 08:00] VITALS: BP 134/75; PULSE 74; RESP 18; TEMP 98.1; O2SAT 93
[2017-03-30] MEDS: SODIUM CHLORIDE 0.9% FLUSH 10 ML FLUSH IV FLUSH SCH (08:16)
[2017-03-30 10:39] VITALS: RESP 17
--- NOTE | 2017-03-30 11:52 | HHI.DS ---
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 The patient's tube feeding was advanced to his goal of 50 cc/hr through his jejunostomy tube. He was able to tolerate full liquids. His pain was controlled using Hycet liquid. He was able to ambulate. Home health care has been arranged. The patient will follow up in the office. Pt Condition on Discharge: Good Discharge Disposition: Disch w/ Home Health Serv Discharge Instructions DIET: Follow Instructions for: Full Liquid Diet Additional Diet Instructions: Tube feeding---continious--- at 50 cc/hr through J tube Activities you can perform: See Additionl Instruction Other Activity Instructions: Okay to shower Pat Sandrine Amaro/First [employer] JESUS Mar 30, 2017 11:52
[2017-03-30 12:00] VITALS: BP 146/78; PULSE 83; RESP 18; TEMP 97.1; O2SAT 94
[2017-03-30] MEDS: ENOXAPARIN SODIUM 40 MG/0.4 ML SYRINGE SQ SCH (12:15)
[2017-03-30] MEDS: ACETAMINOPHEN 325MG/HYDROcodone 7.5MG/15ML UDC PO PRN (12:35)
[2017-03-30 15:12] VITALS: RESP 18
[2017-03-30] MEDS ORDERED: SODIUM CHLORIDE 0.9% FLUSH 10 ML FLUSH IV FLUSH PRN (15:45)
== END 2017-03-30 16:39 | disposition home health service (06) | DRG 327 ==
LOC: HSDI 05:38 → N03A 15:03 → N03B 03-22 19:05 → N07A 03-23 13:36
PROVIDERS: ADMIT Surgery; ATTEND Surgery
PROC: 0D150ZA Bypass Esophagus to Jejunum, Open Approach (ICD-10-PCS; 2017-03-21)
PROC: 07BB0ZX Excision of Mesenteric Lymphatic, Open Approach, Diagnostic (ICD-10-PCS; 2017-03-21)
PROC: 0FB00ZX Excision of Liver, Open Approach, Diagnostic (ICD-10-PCS; 2017-03-21)
PROC: 0DB60ZZ Excision of Stomach, Open Approach (ICD-10-PCS; 2017-03-21)
PROC: 3E0T3BZ Introduction of Anesthetic Agent into Peripheral Nerves and Plexi, Percutaneous Approach (ICD-10-PCS; 2017-03-21)
PROC: 0DHA0UZ Insertion of Feeding Device into Jejunum, Open Approach (ICD-10-PCS; 2017-03-21)
PROC: 0DT60ZZ Resection of Stomach, Open Approach (ICD-10-PCS; principal; 2017-03-21 08:11)
DX: C16.0 Malignant neoplasm of cardia (principal); E87.2 Acidosis; C16.2 Malignant neoplasm of body of stomach; E11.65 Type 2 diabetes mellitus with hyperglycemia; K76.9 Liver disease, unspecified; Z85.51 Personal history of malignant neoplasm of bladder; Z87.442 Personal history of urinary calculi; E78.5 Hyperlipidemia, unspecified; E83.39 Other disorders of phosphorus metabolism; E87.6 Hypokalemia; G89.18 Other acute postprocedural pain
CPT/HCPCS: 36430; 71045; 80048; 80053; 82948; 83605; 83735; 84100; 85025; 85027; 86850; 86900; 86901; 86920; 88305; 88307; 88309; 88329; 88331; 93005; 94150; 94640; 94664; C9113; C9290; J0131; J0690; J1100; J1170; J1642; J1650; J1815; J2270; J2370; J2405; J3010; J3475; J3480; J7030; J7040; J7120; P9016